=== PATIENT | male | born 1950 | race Caucasian/White ===

== ENCOUNTER 2017-07-25 20:14 | Emergency (ER) | payer OTHER ==
[~2017-07-25 20:14] MED LIST: AMOXICILLIN/CLAVULANATE POT 875/125 MG TAB PO SCH
[2017-07-25 20:21] VITALS: O2SAT 93
[2017-07-25] MEDS ORDERED: NS 1,000 ML IV ONE (20:54)
[2017-07-25] MEDS ORDERED: HYDROmorphONE/DILAUDID 1 MG/ML INJ IVP ONE (20:56)
[2017-07-25 21:09] LABS: ADD MORPH? NO; ATYPICAL LYMPHOCYTE FLAG 0 (0-99); FRAGMENT RBC FLAG 0 (0-99); HEMATOCRIT 44.9 % (40.0-51.0); HEMOGLOBIN 15.7 g/dL (13.7-17.5); LIPEMIA HEMOLYSIS FLAG 90 (0-99); MEAN CELL HEMOGLOBIN 33.3 pg (27.9-34.1); MEAN CELL VOLUME 95.1 fL (81.5-99.8); MEAN PLATELET VOLUME 9.7 fL (8.7-11.7); PLATELET CLUMPS FLAG 0 (0-99); PLATELET COUNT 163 10^3/uL (150-400); RED BLOOD CELL COUNT 4.72 10^6/uL (4.40-6.38); RED CELL DISTRIBUTION WIDTH 13.2 % (11.5-15.2)
[2017-07-25 21:12] LABS: LEFT SHIFT FLG 110 (0-99)
[2017-07-25 21:13] LABS: ADD DIFF? YES; ADD SCAN? NO
[2017-07-25 21:25] LABS: ANION GAP 12 mEq/L (8-16); CALCIUM 9.2 mg/dL (8.5-10.4); CARBON DIOXIDE 25 mEq/l (22-31); CHLORIDE 102 mEq/L (97-110); CREATININE 0.8 mg/dL (0.7-1.3); GLOMERULAR FILTRATION RATE > 60; GLUCOSE 104 mg/dL (70-100); SODIUM 139 mEq/L (134-144)
--- NOTE | 2017-07-25 22:07 | EDPHY ---
H & P Time Seen by Provider: 07/25/17 20:38 HPI/ROS: CHIEF COMPLAINT: Headache HISTORY OF PRESENT ILLNESS: 67-year-old male presents to the emergency department complaining of severe headache. The patient recently traveled back from [place]. He returned on Sunday. On Sunday evening he developed productive cough, fever and chills. He saw his primary care provider the following day on Sunday and tested positive for influenza. He was started on Tamiflu. He has been taking this as prescribed since Sunday. He has not felt any relief since taking this medication. He has also had a productive cough. He had of sore throat however this has improved. He denies chest pain or difficulty breathing. Denies neck pain. Denies any reported trauma. He does not have a history of headaches. Specifically did not have a history of migraine headaches. REVIEW OF SYSTEMS: Constitutional: No fever, no chills. Eyes: No double or blurry vision. ENT: No sore throat. Respiratory: Cough as above, no shortness of breath. Cardiac: No chest pain. Gastrointestinal: No abdominal pain, vomiting or diarrhea. Genitourinary: No dysuria. Musculoskeletal: No neck or back pain. Skin: No rashes. Neurological: headache. Past Medical/Surgical History: Influenza Social History: Smoking Status: Never smoked Physical Exam: General Appearance: Alert, no distress. 159/73, 93% on room air Eyes: Pupils equal and round. Extraocular motions are all intact. ENT: Mouth: Mucous membranes moist. Respiratory: No wheezing, rhonchi, or rales, lungs are clear to auscultation. Cardiovascular: Regular rate and rhythm. Gastrointestinal: Abdomen is soft and nontender, no masses, no rebound or guarding, bowel sounds normal. Neurological: Alert and oriented x 3, cranial nerves II through XII grossly intact Skin: Warm and dry, no rashes. Musculoskeletal: Nontender to palpate along the cervical, thoracic or lumbar spine. Neck is supple. Extremities: Full range of motion and no peripheral edema. Psychiatric: Patient is oriented X 3, there is no agitation. Constitutional: Initial Vital Signs Heart Rate 88 07/25/17 20:17 Respiratory Rate 16 07/25/17 20:17 Blood Pressure 159/73 H 07/25/17 20:17 O2 Sat (%) 93 07/25/17 20:17 O2 Delivery Mode Room Air Allergies/Adverse Reactions: No Known Allergies Allergy (Unverified 09/10/09 11:03) Home Medications: Medication Instructions Recorded Amoxicillin/Clavulanate Pot 875 mg PO BID #2 tab 07/25/17 [Augmentin 875 mg tab] Amoxicillin/Clavulanate Pot 875 mg PO BID #20 tab 07/25/17 [Augmentin 875 mg tab] Multi-Vitamin Daily 07/25/17 TESTOSTERONE 07/25/17 Medical Decision Making - Diagnostics Imaging Results: Imaging Impressions Head CT 07/25/17 20:55 Impression: 1. No acute intracranial abnormalities. 2. Extensive paranasal sinus disease. 3. Mild supratentorial small vessel ischemic changes. Dr. Cuenca discussed these findings by telephone with JACK FOSS on at 22:03. Imaging: Discussed imaging studies w/ call center analyst Radiologist ED Course/Re-evaluation: 67-year-old male presents to the emergency department with severe frontal headache. Patient denies any known trauma or injury. He tested positive for influenza 2 days ago and has been taking Tamiflu as prescribed. CT imaging was obtained which revealed no intracranial abnormalities. The patient however had pain hand sinusitis noted. Patient will be treated with oral Augmentin 875 mg twice daily for 10 days. He was given a dose in the emergency department. He was also given IV Toradol as well as IV normal saline. The patient is comfortable being discharged home. I encouraged close follow-up with his primary care provider and encouraged to return if he developed any change in symptoms or if he felt worse in any way. Case was discussed with Dr. Castro Conroy, secondary supervising physician, who did not directly evaluate the patient but agrees with treatment and plan. Differential Diagnosis: Headache including but not limited to subarachnoid hemorrhage, migraine headache , tension headache and infectious causes such as meningitis, pharyngitis and sinusitis. - Data Points Laboratory Results: Laboratory Results 07/25/17 21:02 07/25/17 21:02 07/25/17 07/25/17 21:02 21:02 WBC 7.11 10^3/uL 10^3/uL (3.80-9.50) RBC 4.72 10^6/uL 10^6/uL (4.40-6.38) Hgb 15.7 g/dL g/dL (13.7-17.5) Hct 44.9 % % (40.0-51.0) MCV 95.1 fL fL (81.5-99.8) MCH 33.3 pg pg (27.9-34.1) MCHC 35.0 g/dL g/dL (32.4-36.7) RDW 13.2 % % (11.5-15.2) Plt Count 163 10^3/uL 10^3/uL (150-400) MPV 9.7 fL fL (8.7-11.7) Neut % (Auto) Not Reported Lymph % (Auto) Not Reported [place] % (Auto) Not Reported Eos % (Auto) Not Reported Baso % (Auto) Not Reported Nucleat RBC Rel Count 0.0 % % (0.0-0.2) Absolute Neuts (auto) Not Reported Absolute Lymphs (auto) Not Reported Absolute Monos (auto) Not Reported Absolute Eos (auto) Not Reported Absolute Basos (auto) Not Reported Absolute Nucleated RBC 0.00 10^3/uL 10^3/uL (0-0.01) Immature Gran % Not Reported Seg Neutrophils % 57 % % Band Neutrophils % 11 % % Lymphocytes % 22 % % Monocytes % 9 % % Eosinophils % 1 % % Immature Gran # Not Reported Absolute Seg Neuts 4.05 10^/uL 10^/uL (1.70-6.50) Absolute Band Neuts 0.78 10^3/uL H 10^3/uL (0.00-0.70) Absolute Lymphocytes 1.56 10^3/uL 10^3/uL (1.00-3.00) Absolute Monocytes 0.64 10^3/uL 10^3/uL (0.30-0.80) Absolute Eosinophils 0.07 10^3/uL 10^3/uL (0.03-0.40) RBC/WBC/PLT Morphology NORMAL (NORMAL) Atypical Lymphocytes 2+ H Platelet Estimate ADEQUATE (ADEQ) Smear Review By Pending Sodium 139 mEq/L mEq/L (134-144) Potassium 4.0 mEq/L mEq/L (3.5-5.2) Chloride 102 mEq/L mEq/L (97-110) Carbon Dioxide 25 mEq/l mEq/l (22-31) Anion Gap 12 mEq/L mEq/L (8-16) BUN 12 mg/dL mg/dL (7-23) Creatinine 0.8 mg/dL mg/dL (0.7-1.3) Estimated GFR > 60 Glucose 104 mg/dL H mg/dL (70-100) Calcium 9.2 mg/dL mg/dL (8.5-10.4) Medications Given: Discontinued Medications Amoxicillin/Clavulanate Potassium (Augmentin 875mg) 875 mg PO EDNOW ONE PRN Reason: Protocol Stop: 07/25/17 22:25 Last Admin: 07/25/17 22:31 Dose: 875 mg Hydromorphone HCl (Dilaudid) 0.5 mg IVP EDNOW ONE Stop: 07/25/17 20:57 Last Admin: 07/25/17 21:17 Dose: 0.5 mg Sodium Chloride (Ns) 1,000 mls @ 0 mls/hr IV ONCE ONE PRN Reason: Wide Open Stop: 07/25/17 20:55 Last Admin: 07/25/17 21:16 Dose: 1,000 mls Ketorolac Tromethamine (Toradol) 30 mg IVP EDNOW ONE Stop: 07/25/17 22:09 Last Admin: 07/25/17 22:17 Dose: 30 mg Departure - Departure Disposition: Home, Routine, Self-Care Clinical Impression: Influenza Sinusitis Qualifiers: Sinusitis location: pansinusitis Chronicity: acute Recurrence: non-recurrent Qualified Code(s): J01.40 - Acute pansinusitis, unspecified Condition: Good Instructions: Amoxicillin/Clavulanate Potassium (By mouth), Sinusitis (ED) Additional Instructions: Augmentin twice daily for 10 days. Guaifenesin 600-1200 mg twice daily to help relieve congestion. Adult Pain & Fever Control: We recommend Acetaminophen (Tylenol) and Ibuprofen (Motrin,Advil) for pain and fever control. When fever is high or pain severe, both drugs can be used at the same time, but at different intervals. Please note the time differences. Your dose is: Acetaminophen 1000mg every 4 to 6 hours Ibuprofen 600mg every 8 hours with food Note: do not take Acetaminophen with Hydrocodone (Vicodin, Lortab) or Oycodone (Percocet). These medications also contain Acetaminophen. No more than 3000mg of Acetaminophen should be taken in 24 hours (for an adult). Referrals: David Reno MD [Primary Care Provider] - 1-2 days without fail Prescriptions: Amoxicillin/Clavulanate Pot [Augmentin 875 mg tab] 875 mg PO BID #2 tab Amoxicillin/Clavulanate Pot [Augmentin 875 mg tab] 875 mg PO BID #20 tab
[2017-07-25 22:08] LABS: PLATELET ESTIMATE ADEQUATE (ADEQ)
[2017-07-25] MEDS ORDERED: KETOROLAC 30 MG/1 ML SDV IVP ONE (22:08)
[2017-07-25 22:21] VITALS: BP 139/67; PULSE 72; RESP 15
[2017-07-25] MEDS ORDERED: AMOXICILLIN/CLAVULANATE POT 875/125 MG TAB PO ONE (22:24)
[2017-07-25 22:57] VITALS: TEMP 98.8
== END 2017-07-25 22:49 | disposition home or self-care (01) ==
DX: J11.89 Influenza due to unidentified influenza virus with other manifestations (principal); J01.40 Acute pansinusitis, unspecified
CPT/HCPCS: 96374; J1170; J1885